=== PATIENT | female | born 1970 | race Caucasian/White ===

== ENCOUNTER 2016-08-29 12:21 | Observation (INO) | payer OTHER ==
[2016-08-29 12:26] VITALS: BMI 40.3
--- NOTE | 2016-08-29 12:28 | PDOC ---
History of Present Illness <Stephen Arteaga - Last Filed: 08/29/16 14:48> - History of Present Illness Initial Comments: 08/29/16 12:39 The patient is a 46 year old female with a past medical hx of diabetes ( metformin), hypothyroidism, hypercholesterolemia who presents to the ED sent by her PCP for evaluation of irregular heartbeat. The patient reports she went to her PCP for her regular check up. Dr. Razo reports her pulse was low so they performed an EKG. On EKG, her heart beat appeared to be irregular. Dr. Razo then sent her to the ED for further workup and evaluation. The patient states she feels fine while in the ED but notes a headache. She reports she had a frontal headache since this morning. The patient denies palpitations, chest pain, SOB The patient denies nausea, vomiting, diarrhea PCP: Dr. Razo <Doreen Casarez - Last Filed: 08/29/16 16:07> - General Chief Complaint: Irregular Heart Beat Stated Complaint: HEADACHE Time Seen by Provider: 08/29/16 12:27 Past History - Past Medical History Anemia: No Asthma: No Cancer: No Cardiac Disorders: No CVA: No COPD: No CHF: No Dementia: No Diabetes: Yes (PT STATES SHE TAKES FOR PREVENTION) GI Disorders: No Disorders: No HTN: Yes Hypercholesterolemia: Yes (PT STATES SHE TAKES FOR PREVENTION) Liver Disease: No Seizures: No Thyroid Disease: Yes - Psycho/Social/Smoking Cessation Hx Anxiety: No Suicidal Ideation: No Smoking History: Former smoker Have you smoked in the past 12 months: No Information on smoking cessation initiated: No Hx Alcohol Use: No Drug/Substance Use Hx: No Substance Use Type: Alcohol <Stephen Arteaga - Last Filed: 08/29/16 14:48> <Doreen Casarez - Last Filed: 08/29/16 16:07> - Past Medical History Allergies/Adverse Reactions: Allergies Allergy/AdvReac Type Severity Reaction Status Date / Time No Known Allergies Allergy Verified 09/14/14 12:29 Home Medications: Ambulatory Orders Alprazolam [Xanax] 0.5 mg PO HS 08/29/16 Atorvastatin Ca [Lipitor] 40 mg PO HS 08/29/16 Baclofen 20 mg PO HS 08/29/16 Cholecalciferol (Vitamin D3) [Vitamin D3] 50,000 unit PO WEEKLY 08/29/16 Furosemide [Lasix] 40 mg PO DAILY 08/29/16 Gabapentin 300 mg PO BID 08/29/16 Levothyroxine [Synthroid -] 175 mcg PO DAILY 08/29/16 Meloxicam [Mobic] 15 mg PO DAILY 08/29/16 Metformin HCl [Metformin HCl ER] 500 mg PO DAILY 08/29/16 Sertraline HCl [Zoloft -] 200 mg PO DAILY 08/29/16 Review of Systems - Review of Systems Able to Perform ROS?: Yes Comments:: 08/29/16 12:39 GENERAL/CONSTITUTIONAL: No fever or chills. No weakness. HEAD, EYES, EARS, NOSE AND THROAT: No change in vision. No ear pain or discharge. No sore throat. CARDIOVASCULAR: No chest pain or shortness of breath. RESPIRATORY: No cough, wheezing, or hemoptysis. GASTROINTESTINAL: No nausea, vomiting, diarrhea or constipation. GENITOURINARY: No dysuria, frequency, or change in urination. MUSCULOSKELETAL: No joint or muscle swelling or pain. No neck or back pain. SKIN: No rash NEUROLOGIC: +Headache. No vertigo, loss of consciousness, or change in strength/ sensation. ENDOCRINE: No increased thirst. No abnormal weight change. HEMATOLOGIC/LYMPHATIC: No anemia, easy bleeding, or history of blood clots. ALLERGIC/IMMUNOLOGIC: No hives or skin allergy. <Doreen Casarez - Last Filed: 08/29/16 16:07> *Physical Exam - Vital Signs Last Vital Signs Temp Pulse Resp BP Pulse Ox 98.5 F 68 20 139/88 99 08/29/16 12:23 08/29/16 12:23 08/29/16 12:23 08/29/16 12:23 08/29/16 12:23 <Stephen Arteaga - Last Filed: 08/29/16 14:48> - Vital Signs Last Vital Signs Temp Pulse Resp BP Pulse Ox 98.5 F 68 20 139/88 99 08/29/16 12:23 08/29/16 12:23 08/29/16 12:23 08/29/16 12:23 08/29/16 12:23 - Physical Exam Comments: 08/29/16 12:40 GENERAL: Awake, alert, and fully oriented, in no acute distress HEAD: No signs of trauma EYES: PERRLA, EOMI, sclera anicteric, conjunctiva clear ENT: Auricles normal inspection, hearing grossly normal, nares patent, oropharynx clear without exudates. Moist mucosa NECK: Normal ROM, supple, no lymphadenopathy, JVD, or masses LUNGS: Breath sounds equal, clear to auscultation bilaterally. No wheezes, and no crackles HEART: Regular rate and rhythm, normal S1 and S2, no murmurs, rubs or gallops ABDOMEN: Soft, nontender, normoactive bowel sounds. No guarding, no rebound. No masses EXTREMITIES: Normal range of motion, no edema. No clubbing or cyanosis. No cords, erythema, or tenderness NEUROLOGICAL: Cranial nerves II through XII grossly intact. Normal speech, normal gait SKIN: Warm, Dry, normal turgor, no rashes or lesions noted. <Doreen Casarez - Last Filed: 08/29/16 16:07> Heart Score/ECG Review - ECG Impressions Comment:: 08/29/16 12:55 EKG performed at 12:27 Sinus rhythm at a rate of 83 bpm with frequent and consecutive premature ventricular complexes T wave abnormality Prolonged QT <Doreen Casarez - Last Filed: 08/29/16 16:07> ED Treatment Course - LABORATORY CBC & Chemistry Diagram: 08/29/16 12:35 08/29/16 12:35 <Stephen Arteaga - Last Filed: 08/29/16 14:48> - LABORATORY CBC & Chemistry Diagram: 08/29/16 12:35 08/29/16 12:35 - RADIOLOGY Radiograph Interpretation: 08/29/16 16:07 CHEST X-RAY PORTABLE* AP portable chest: Chest pain A single view the chest reveals a large heart, normal aorta, prominent adeel and clear lung dias. The angles are sharp and the soft tissues are intact. There are degenerative spine and shoulder changes. Impression: No acute pathology. Large heart. Reported By: Garrett Reese MD 08/29/16 2614 <Doreen Casarez - Last Filed: 08/29/16 16:07> Medical Decision Making - Medical Decision Making 08/29/16 15:31 The patient is a 46 year old female with a past medical hx of diabetes ( metformin), hypothyroidism, hypercholesterolemia who presents to the ED sent by her PCP for evaluation of irregular heartbeat. The patient went for her regular check up and had an EKG performed because her pulse was low. The EKG showed irregular heartbeat so Dr. Razo sent her to the ED for further work up and evaluation. The patient reports she is feeling fine while in the ED. She does have a mild headache since this morning. Discussed the patients case with Dr. Razo who agrees with the plan for admission. The patient understands and agrees with the plan for admission. All questions answered. <Doreen Casarez - Last Filed: 08/29/16 16:07> *DC/Admit/Observation/Transfer - Discharge Dispostion Admit: Yes - Attestations Physician Attestion: 08/29/16 12:27 I, Dr. Stephen Arteaga, attest that this document has been prepared under my direction and personally reviewed by me in its entirety. I further attest, that it accurately reflects all work, treatment, procedures and medical decision -making performed by me. <Stephen Arteaga - Last Filed: 08/29/16 14:48> - Attestations Scribe Attestion: 08/29/16 12:39 Documentation prepared by Doreen Casarez, acting as chief medical director for Stephen Arteaga MD/DO. <Doreen Casarez - Last Filed: 08/29/16 16:07> Diagnosis at time of Disposition: Cardiac arrhythmia Qualifiers: Arrhythmia type: other cardiac arrhythmia Qualified Code(s): I49.8 - Other specified cardiac arrhythmias - Discharge Dispostion Condition at time of disposition: Good - Referrals
[2016-08-29 12:57] LABS: BASOPHIL 1.1 % (0-2.0); EOSINOPHIL 2.7 % (0-4.5); MCHC 33.5 g/dl (32.0-36.0); MEAN CELL VOLUME 89.5 fl (80-96); MEAN PLT VOLUME 9.2 fl (7.5-11.1); NEUTROPHILS 60.3 % (42.8-82.8); PLATELET COUNT 273 K/MM3 (134-434); RDW 14.4 % (11.6-15.6); WHITE BLOOD COUNT 8.1 K/mm3 (4.0-10.0)
[2016-08-29 13:10] LABS: INR 1.03 (0.82-1.09)
[2016-08-29 13:17] LABS: ALBUMIN 3.9 g/dl (3.4-5.0); ANION GAP 10 (8-16); BILIRUBIN,TOTAL 0.3 mg/dL (0.2-1.0); CALCIUM 9.2 mg/dL (8.5-10.1); CO2 27 mmol/L (21-32); CREATININE 0.7 mg/dL (0.55-1.02); GLUCOSE,RANDOM 96 mg/dL (74-106); SGOT/AST 8 U/L (15-37); SGPT/ALT 14 U/L (12-78); TOT PROT 7.1 g/dl (6.4-8.2)
[2016-08-29 13:20] LABS: ALK PHOS 73 U/L (45-117); TROPONIN I < 0.02 ng/ml (0.00-0.05)
[2016-08-29 13:23] LABS: D-DIMER < 200 ng/ml (<200-235)
[2016-08-29 15:22] LABS: URINE APPEARANCE CLEAR; URINE BILIRUBIN NEGATIVE (NEGATIVE); URINE COLOR STRAW; URINE GLUCOSE (UA) NEGATIVE (NEGATIVE); URINE KETONE NEGATIVE (NEGATIVE); URINE LEUK ESTERASE NEGATIVE (NEGATIVE); URINE NITRITE NEGATIVE (NEGATIVE); URINE PROTEIN NEGATIVE (NEGATIVE); URINE UROBILINOGEN NEGATIVE E.U./dl (0.2-1.0)
[2016-08-29 15:29] LABS: URINE BLOOD 1+ (NEGATIVE)
[2016-08-29 15:55] LABS: URINE BACTERIA RARE /hpf (NONE SEEN); URINE RBC <1 /hpf (0-3)
--- NOTE | 2016-08-29 16:39 | CON.CARD ---
Cardiology Consult (text) - Consultation Consultation Note: Called from ER for cardiology consult at Dr. Razo's request. However, patient' s mother is Dr. Fitzpatrick's patient and is requesting to be seen by Dr. Fitzpatrick. Nurse and accounts payable or receivable clerk were notified to contact Dr. Fitzpatrick regarding consult. Left message with Dr. Razo regarding this matter.
[2016-08-29] MEDS: ACETAMINOPHEN 325 MG TABLET (FP) PO PRN (17:29)
[2016-08-29] MEDS: SERTRALINE HCL 50 MG TABLET (FP) PO SCH (17:31)
[2016-08-29] MEDS: GABAPENTIN 300 MG CAPSULE (FP) PO SCH (21:13)
[2016-08-29] MEDS: BACLOFEN 10 MG TABLET (FP) PO SCH (21:13)
[2016-08-29] MEDS: ALPRAZolam 0.25 MG TABLET PO SCH (21:13)
[2016-08-29] MEDS ORDERED: ATORVASTATIN CA 40 MG TABLET (FP) PO SCH (22:00)
[2016-08-30] MEDS ORDERED: LEVOTHYROXINE NA 150 MCG TABLET ONE (06:12)
[2016-08-30] MEDS ORDERED: LEVOTHYROXINE NA 25 MCG TABLET (FP) ONE (06:12)
[2016-08-30] MEDS: LEVOTHYROXINE 25 MCG, LEVOTHYROXINE 150 MCG PO SCH (06:16)
[2016-08-30] MEDS ORDERED: LEVOTHYROXINE NA 175 MCG TABLET PO SCH (07:00)
[2016-08-30 08:40] LABS: CHOLESTEROL 227 mg/dL (50-200); LDL CHOLESTEROL (ONLY SJRH) 154 mg/dL (5-100)
--- NOTE | 2016-08-30 09:08 | PN ---
Progress Note (short form) - Note Progress Note: Consult Dictated Multiple risk factors including DM/HL/HTN Frequent VPCs, couplets and short runs NSVT (3 beats): completely asymptomatic. Normal TSH, electrolytes. Reports no percocet use x 2 weeks. REC: Echo for EF assessment today, cardiomegaly on CXR. Check second set cardiac enzymes. Start Metoprolol tartrate 25mg BID, continue tele. Plan for Persantine MIBI in AM r/o ischemia.
[2016-08-30] MEDS: METOPROLOL TARTRATE 25 MG TABLET (FP) PO SCH ×2 (10:24→21:35)
[2016-08-30] MEDS: FUROSEMIDE 40 MG TABLET (FP) PO SCH (10:24)
[2016-08-30] MEDS: ALPRAZolam 0.25 MG TABLET PO SCH ×2 (10:24→21:37)
[2016-08-30] MEDS: GABAPENTIN 300 MG CAPSULE (FP) PO SCH ×2 (10:24→21:35)
[2016-08-30] MEDS: SERTRALINE HCL 50 MG TABLET (FP) PO SCH (10:25)
--- NOTE | 2016-08-30 10:52 | HP ---
Admitting History and Physical - Primary Care Physician PCP: Wm Razo - Admission Chief Complaint: palpitations/dizziness History of Present Illness: sent from our office found with abnormal ekg, history of hypothyroid disorder, c /o flushing, palpitations, light headedness for 2 days History Source: Patient - Past Medical History ...LMP: 09/13/14 - Smoking History Smoking history: Former smoker Have you smoked in the past 12 months: No - Alcohol/Substance Use Hx Alcohol Use: No Home Medications - Allergies Allergies/Adverse Reactions: Allergies Allergy/AdvReac Type Severity Reaction Status Date / Time No Known Allergies Allergy Verified 09/14/14 12:29 - Home Medications Home Medications: Ambulatory Orders Alprazolam [Xanax] 0.5 mg PO HS 08/29/16 Atorvastatin Ca [Lipitor] 40 mg PO HS 08/29/16 Cholecalciferol (Vitamin D3) [Vitamin D3] 50,000 unit PO WEEKLY 08/29/16 Furosemide [Lasix] 40 mg PO DAILY 08/29/16 Levothyroxine [Synthroid -] 175 mcg PO DAILY 08/29/16 Meloxicam [Mobic] 15 mg PO DAILY 08/29/16 Metformin HCl [Metformin HCl ER] 500 mg PO DAILY 08/29/16 RX: Baclofen 20 mg PO HS 08/29/16 RX: Gabapentin 300 mg PO BID 08/29/16 Sertraline HCl [Zoloft -] 200 mg PO DAILY 08/29/16 Review of Systems - Review of Systems Constitutional: reports: Weakness Eyes: reports: No Symptoms HENT: reports: No Symptoms Neck: reports: No Symptoms Cardiovascular: reports: Palpitations, Shortness of Breath Respiratory: reports: No Symptoms Gastrointestinal: reports: No Symptoms Genitourinary: reports: No Symptoms Musculoskeletal: reports: No Symptoms Integumentary: reports: No Symptoms Neurological: reports: No Symptoms Endocrine: reports: No Symptoms Psychiatric: reports: No Symptoms Physical Examination Vital Signs: Vital Signs Temperature 97.6 F 08/30/16 09:00 Pulse Rate 78 08/30/16 09:00 Respiratory Rate 20 08/30/16 09:00 Blood Pressure 112/46 08/30/16 09:00 O2 Sat by Pulse Oximetry (%) 98 08/30/16 09:00 Constitutional: Yes: Mild Distress Eyes: Yes: WNL HENT: Yes: WNL Neck: Yes: WNL Cardiovascular: Yes: Pulse Irregular Respiratory: Yes: WNL Gastrointestinal: Yes: WNL Renal/: Yes: WNL Extremities: Yes: WNL Edema: No Peripheral Pulses WNL: Yes Integumentary: Yes: WNL Wound/Incision: Yes: Clean/Dry Neurological: Yes: WNL ...Motor Strength: WNL Psychiatric: Yes: WNL Problem List - Problems (1) Cardiac arrhythmia Code(s): I49.9 - CARDIAC ARRHYTHMIA, UNSPECIFIED Qualifiers: Arrhythmia type: other cardiac arrhythmia Qualified Code(s): I49.8 - Other specified cardiac arrhythmias Assessment/Plan cardiac eval telemetry observation stress test thyroid panel
[2016-08-30 11:21] LABS: ANION GAP 11 (8-16); CALCIUM 9.5 mg/dL (8.5-10.1); CO2 26 mmol/L (21-32); CREATININE 0.6 mg/dL (0.55-1.02); GLUCOSE,RANDOM 89 mg/dL (74-106); TROPONIN I < 0.02 ng/ml (0.00-0.05)
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
--- NOTE | 2016-08-30 17:14 | EKG ---
Test Reason : Blood Pressure : / mmHG Vent. Rate : 083 BPM Atrial Rate : 062 BPM P-R Int : 182 ms QRS Dur : 090 ms QT Int : 410 ms P-R-T Axes : 016 -14 024 degrees QTc Int : 481 ms SINUS RHYTHM WITH FREQUENT and consecutive PREMATURE VENTRICULAR COMPLEXES T WAVE ABNORMALITY, CONSIDER ANTERIOR ISCHEMIA PROLONGED QT ABNORMAL ECG WHEN COMPARED WITH ECG OF 14-SEP-2014 12:15, PREMATURE VENTRICULAR COMPLEXES ARE NOW PRESENT T WAVE INVERSION NO LONGER EVIDENT IN LATERAL LEADS Confirmed by TAMARA JOHNSON MD ([id number]) on 08/30/2016 5:14:13 PM Referred By: Confirmed By:TAMARA JOHNSON MD
[2016-08-30] MEDS: ASPIRIN 81 MG CHEWABLE TABLETS PO SCH (20:23)
[2016-08-30] MEDS: ATORVASTATIN CA 40 MG TABLET (FP) PO SCH (21:35)
[2016-08-30] MEDS: BACLOFEN 10 MG TABLET (FP) PO SCH (21:37)
[2016-08-31] MEDS ORDERED: LEVOTHYROXINE NA 150 MCG TABLET ONE (05:55)
[2016-08-31] MEDS ORDERED: LEVOTHYROXINE NA 25 MCG TABLET (FP) ONE (05:55)
[2016-08-31] MEDS: LEVOTHYROXINE 25 MCG, LEVOTHYROXINE 150 MCG PO SCH (06:01)
[2016-08-31] MEDS: ACETAMINOPHEN 325 MG TABLET (FP) PO PRN (08:02)
--- NOTE | 2016-08-31 09:11 | PN ---
Progress Note, Physician Chief Complaint: asx without chest pain or palps TELE: single VPCS and couplets resolved, but multiple 3 beat runs NSVT Mild sinus priya History of Present Illness: echo Normal LV function Mildly dilated LV - Current Medication List Current Medications: Active Medications Acetaminophen (Tylenol -) 650 mg PO Q6H PRN PRN Reason: FEVER OR PAIN Last Admin: 08/31/16 08:02 Dose: 650 mg Alprazolam (Xanax -) 0.5 mg PO BID [facility] Last Admin: 08/30/16 21:37 Dose: 0.5 mg Aspirin (Asa -) 81 mg PO DAILY [facility] Last Admin: 08/30/16 20:23 Dose: 81 mg Atorvastatin Calcium (Lipitor -) 40 mg PO HS [facility] Last Admin: 08/30/16 21:35 Dose: 40 mg Baclofen (Lioresal -) 20 mg PO HS [facility] Last Admin: 08/30/16 21:37 Dose: 20 mg Furosemide (Lasix -) 40 mg PO DAILY [facility] Last Admin: 08/30/16 10:24 Dose: 40 mg Gabapentin (Neurontin -) 300 mg PO BID [facility] Last Admin: 08/30/16 21:35 Dose: 300 mg Dipyridamole 50 mg/ Dextrose 50 mls @ 750 mls/hr IVPB ONCE ONE Stop: 08/31/16 10:03 Levothyroxine Sodium 25 mcg/ (Levothyroxine Sodium 150 mcg) 175 mcg PO DAILY@ 0700 [facility] Last Admin: 08/31/16 06:01 Dose: 175 mcg Metoprolol Tartrate (Lopressor -) 25 mg PO BID [facility] Last Admin: 08/30/16 21:35 Dose: 25 mg Sertraline HCl (Zoloft -) 200 mg PO DAILY [facility] Last Admin: 08/30/16 10:25 Dose: 200 mg - Objective Vital Signs: Vital Signs Temperature 98.1 F 08/31/16 08:42 Pulse Rate 58 L 08/31/16 08:42 Respiratory Rate 20 08/31/16 08:42 Blood Pressure 112/58 08/31/16 08:42 O2 Sat by Pulse Oximetry (%) 96 08/31/16 01:00 Constitutional: Yes: No Distress Cardiovascular: Yes: Regular Rate and Rhythm Respiratory: Yes: CTA Bilaterally Gastrointestinal: Yes: Soft, Abdomen, Obese Edema: No Neurological: Yes: Alert ...Motor Strength: WNL Labs: CBC, BMP 08/30/16 05:35 INR, PTT INR 1.03 (0.82-1.09) 08/29/16 12:35 - ....Imaging EKG: Image Reviewed Assessment/Plan Multiple risk factors including DM/HL/HTN Frequent VPCs, couplets and short runs NSVT (3 beats): completely asymptomatic with normal LV function, nl TSH and nl electrolytes Mildly prolonged QT- ?medication related REC: For persantine MIBI today, part 2. Rule out underlying ischemia. Keep K+ and Mg2+ normalized. Avoid opiates for chronic pain as they may prolong QT. Would try to reduce dose of SSRI if possible, as it may also contribute to QT prolongation. Continue beta sonya.
[2016-08-31] MEDS ORDERED: DIPYRIDAMOLE STRESS TEST 50 MG in DEXTROSE 5%-WATER - 40 ML IVPB ONE (10:00)
[2016-08-31] MEDS: ASPIRIN 81 MG CHEWABLE TABLETS PO SCH (12:01)
[2016-08-31] MEDS: FUROSEMIDE 40 MG TABLET (FP) PO SCH (12:01)
[2016-08-31] MEDS: ALPRAZolam 0.25 MG TABLET PO SCH ×2 (12:01→22:07)
[2016-08-31] MEDS: METOPROLOL TARTRATE 25 MG TABLET (FP) PO SCH ×2 (12:02→22:07)
[2016-08-31] MEDS: GABAPENTIN 300 MG CAPSULE (FP) PO SCH ×2 (12:02→22:07)
[2016-08-31] MEDS: SERTRALINE HCL 50 MG TABLET (FP) PO SCH (12:02)
--- NOTE | 2016-08-31 14:46 | PN ---
Progress Note (short form) - Note Progress Note: Rhythm strips and ECG reviewed with EP at [facility], Dr. Wang. VPCS originate from RVOT. QTc only mildly prolonged. With normal EF and normal stress test, ok for d/c over weekend with close outpatient f/u and recommended VPC ablation. Have lowered metoprolol to 12.5mg BID as I noted the VPC burden seemed to diminish as heart rate increased during stress test. Would observe additional 24hours on tele with the adjusted beta sonya dose and if stable can be discharged tomorrow late afternoon with instructions to f/ u with me in office next week. D/W Dr. Razo.
[2016-08-31] MEDS: BACLOFEN 10 MG TABLET (FP) PO SCH (22:07)
[2016-08-31] MEDS: ATORVASTATIN CA 40 MG TABLET (FP) PO SCH (22:07)
[2016-09-01] MEDS ORDERED: LEVOTHYROXINE NA 150 MCG TABLET ONE (06:17)
[2016-09-01] MEDS ORDERED: LEVOTHYROXINE NA 25 MCG TABLET (FP) ONE (06:17)
[2016-09-01] MEDS: LEVOTHYROXINE 25 MCG, LEVOTHYROXINE 150 MCG PO SCH (06:20)
[2016-09-01 08:59] VITALS: BP 115/69; PULSE 61; TEMP 98
[2016-09-01] MEDS: SERTRALINE HCL 50 MG TABLET (FP) PO SCH (09:10)
[2016-09-01] MEDS: ALPRAZolam 0.25 MG TABLET PO SCH (09:10)
[2016-09-01] MEDS: METOPROLOL TARTRATE 25 MG TABLET (FP) PO SCH (09:10)
[2016-09-01] MEDS: ASPIRIN 81 MG CHEWABLE TABLETS PO SCH (09:11)
[2016-09-01] MEDS: GABAPENTIN 300 MG CAPSULE (FP) PO SCH (09:11)
[2016-09-01] MEDS: FUROSEMIDE 40 MG TABLET (FP) PO SCH (09:11)
--- NOTE | 2016-09-01 09:46 | PN ---
[id number]: The patient is a 46 year old female with a past medical hx of diabetes ( metformin), hypothyroidism, hypercholesterolemia, obesity, anxiety/depression, who presents to the ED sent by her PCP for evaluation of irregular heartbeat. The patient reports she went to her PCP for her regular check up. Dr. Razo reports her pulse was low so they performed an EKG. On EKG, her heart beat appeared to be irregular. Dr. Razo then sent her to the ED for further workup and evaluation. The patient states she feels fine while in the ED but notes a headache. She reports she had a frontal headache since this morning. The patient denies palpitations, chest pain, SOB The patient denies nausea, vomiting, diarrhea PCP: Dr. Razo - Current Medication List Current Medications: Active Medications Acetaminophen (Tylenol -) 650 mg PO Q6H PRN PRN Reason: FEVER OR PAIN Last Admin: 08/31/16 08:02 Dose: 650 mg Alprazolam (Xanax -) 0.5 mg PO BID [facility] Last Admin: 09/01/16 09:10 Dose: 0.5 mg Aspirin (Asa -) 81 mg PO DAILY [facility] Last Admin: 09/01/16 09:11 Dose: 81 mg Atorvastatin Calcium (Lipitor -) 40 mg PO HS [facility] Last Admin: 08/31/16 22:07 Dose: 40 mg Baclofen (Lioresal -) 20 mg PO HS [facility] Last Admin: 08/31/16 22:07 Dose: 20 mg Furosemide (Lasix -) 40 mg PO DAILY [facility] Last Admin: 09/01/16 09:11 Dose: 40 mg Gabapentin (Neurontin -) 300 mg PO BID [facility] Last Admin: 09/01/16 09:11 Dose: 300 mg Levothyroxine Sodium 25 mcg/ (Levothyroxine Sodium 150 mcg) 175 mcg PO DAILY@ 0700 [facility] Last Admin: 09/01/16 06:20 Dose: 175 mcg Metoprolol Tartrate (Lopressor -) 12.5 mg PO BID [facility] Last Admin: 09/01/16 09:10 Dose: 12.5 mg Sertraline HCl (Zoloft -) 200 mg PO DAILY [facility] Last Admin: 09/01/16 09:10 Dose: 200 mg - Objective Vital Signs: Vital Signs Temperature 98 F 09/01/16 08:52 Pulse Rate 61 09/01/16 08:52 Respiratory Rate 20 09/01/16 08:52 Blood Pressure 115/69 09/01/16 08:52 O2 Sat by Pulse Oximetry (%) 95 09/01/16 01:00 Constitutional: Yes: Well Nourished, Calm Eyes: Yes: WNL HENT: Yes: WNL Neck: Yes: WNL Cardiovascular: Yes: Regular Rate and Rhythm Respiratory: Yes: Regular Gastrointestinal: Yes: Soft ...Rectal Exam: Yes: Deferred Genitourinary: No: Anuria Breast(s): Yes: WNL Musculoskeletal: Yes: WNL Extremities: Yes: WNL Edema: No Peripheral Pulses WNL: Yes Integumentary: Yes: WNL Neurological: Yes: WNL Psychiatric: Yes: WNL Labs: CBC, BMP 08/30/16 05:35 INR, PTT INR 1.03 (0.82-1.09) 08/29/16 12:35 - ....Imaging Chest X-ray: Image Reviewed (no acute pathology) EKG: Image Reviewed (NSR) Problem List - Problems (1) Cardiac arrhythmia Assessment/Plan: resolved bradycardia. TSH WNL. On anxiolytics (sertraline; alprazolam). Code(s): I49.9 - CARDIAC ARRHYTHMIA, UNSPECIFIED Qualifiers: Arrhythmia type: other cardiac arrhythmia Qualified Code(s): I49.8 - Other specified cardiac arrhythmias (2) HTN (hypertension) Assessment/Plan: On metoprolol. Diet modification and increase exercise for aid in weight reduction. Code(s): I10 - ESSENTIAL (PRIMARY) HYPERTENSION (3) Anxiety and depression Code(s): F41.9 - ANXIETY DISORDER, UNSPECIFIED F32.9 - MAJOR DEPRESSIVE DISORDER, SINGLE EPISODE, UNSPECIFIED
--- NOTE | 2016-09-01 10:02 | DS ---
Physical Examination Vital Signs: Vital Signs Temperature 98 F 09/01/16 08:52 Pulse Rate 61 09/01/16 08:52 Respiratory Rate 20 09/01/16 08:52 Blood Pressure 115/69 09/01/16 08:52 O2 Sat by Pulse Oximetry (%) 95 09/01/16 01:00 Findings/Remarks: DRESSED IN [employer] PROMISES TO SEE PCP IN 1 WEEK Constitutional: Yes: Calm Neck: Yes: WNL Cardiovascular: Yes: WNL Respiratory: Yes: WNL Gastrointestinal: Yes: WNL Edema: No Labs: CBC, BMP 08/30/16 05:35 Discharge Summary Reason For Visit: CARDIAC ARRHYTHMIA Current Active Problems Cardiac arrhythmia (Acute) Hospital Course: (1) Cardiac arrhythmia Code(s): I49.9 - CARDIAC ARRHYTHMIA, UNSPECIFIED Qualifiers: Arrhythmia type: other cardiac arrhythmia Qualified Code(s): I49.8 - Other specified cardiac arrhythmias Assessment/Plan cardiac eval appreciated echo/stress test - neg outpt f/u telemetry observation stress test thyroid panel -> tsh wnl statin DISCHARGE [employer] [facility] Condition: Stable - Instructions Diet, Activity, Other Instructions: Follow up with Dr. Cai next week in his office If any your symptoms reoccur please come back to ER Referrals: Calos Fitzpatrick MD [Staff Physician] - Wm Razo MD [Primary Care Provider] - Disposition: HOME - Home Medications Comprehensive Discharge Medication List: Ambulatory Orders Alprazolam [Xanax -] 0.5 mg PO HS 08/29/16 Atorvastatin Ca [Lipitor] 40 mg PO HS 08/29/16 Baclofen 20 mg PO HS 08/29/16 Cholecalciferol (Vitamin D3) [Vitamin D3] 50,000 unit PO WEEKLY 08/29/16 Furosemide [Lasix] 40 mg PO DAILY 08/29/16 Gabapentin 300 mg PO BID 08/29/16 Levothyroxine [Synthroid -] 175 mcg PO DAILY 08/29/16 Meloxicam [Mobic] 15 mg PO DAILY 08/29/16 Metformin HCl [Metformin HCl ER] 500 mg PO DAILY 08/29/16 Sertraline HCl [Zoloft -] 200 mg PO DAILY 08/29/16 Aspirin [ASA -] 81 mg PO DAILY tab.chew 08/31/16 Metoprolol Tartrate [Lopressor -] 12.5 mg PO BID #30 tablet 08/31/16
== END 2016-09-01 14:46 | disposition home or self-care (01) ==
LOC: SUPCPDRO 12:21 → JER 12:21 → JERBED 14:48 → J4W 15:45
PROVIDERS: ADMIT Family Medicine; ATTEND Family Medicine
DX: I49.9 Cardiac arrhythmia, unspecified (principal); E11.9 Type 2 diabetes mellitus without complications; Z79.84 Long term (current) use of oral hypoglycemic drugs; E03.9 Hypothyroidism, unspecified; E78.00 Pure hypercholesterolemia, unspecified; Z87.891 Personal history of nicotine dependence; E66.9 Obesity, unspecified; F41.8 Other specified anxiety disorders; Z68.41 Body mass index [BMI] 40.0-44.9, adult
CPT/HCPCS: 36415; 71010-TC; 78452-TC; 80048; 80053; 80061; 81003; 81015; 82550; 83036; 83721; 83735; 84443; 84479; 84484; 84703; 85025; 85379; 85610; 93005; 93010; 93017; 93306-TC; 99285-25; A9502; G0378; J0475; J1245